=== PATIENT | male | born 1955 | race Caucasian/White ===

== ENCOUNTER 2024-02-19 15:29 | Emergency (ER) | payer OTHER, SELFPAY ==
[2024-02-19 15:32] VITALS: BP 187/98
--- NOTE | 2024-02-19 16:37 | ED.GENMED ---
History of Present Illness
General
Chief Complaint: Abnormal Lab Value
Source: patient
Exam Limitations: none
Time Seen by Provider: 02/19/24 16:04
Nursing documentation reviewed up to this point in time: agreed with
Travel History
Have you had any contact with someone who has COVID-19?: No
Do you have any symptoms of coronavirus? Fever > 100 degrees, chills, cough, shortness of breath, sore throat, loss of taste or smell, muscle aches, or headache?: No
History of Present Illness
History of Present Illness:
68-year-old male presents to the ER for evaluation of low sodium. Patient reports he had outpatient blood work done 2 days ago and was called by his family doctor stating sodium was low and to come to the ER. He is asymptomatic and has no
complaints. He is on HCTZ and lisinopril for blood pressure no prior history of abnormal sodium in the past. No complaints.
Review of Systems
Review of Systems
Allergies reviewed?: Yes
All Other Systems: ROS reviewed and negative except as documented in HPI and ROS
Constitutional: Reports no symptoms; Denies fever, fatigue or chills
Respiratory: Reports no symptoms
Cardiac: Reports no symptoms
: Reports no symptoms
Musculoskeletal: Reports no symptoms
Skin: Reports no symptoms
Neurological: Reports no symptoms
Hematologic/Lymphatic: Reports no symptoms
Psychiatric: Reports no symptoms
Phy Exam
General Physical Exam
General Presentation: no apparent distress
General age: appears stated age
General Skin: warm and dry
General Habitus: normal
General Mental: alert
General Hydration: appears well hydrated
Cardiovascular Exam
Cardiovascular Exam: regular rate/rhythm, no murmur and normal peripheral pulses
Pulmonary Exam
Pulmonary Exam: lungs clear and no respiratory distress
Neurological Exam
Neurological Exam: alert and oriented x3
Musculoskeletal Exam
Musculoskeletal Exam: full ROM
Skin Exam
Skin Exam: normal color and warm/dry
Psychiatric Exam
Psychiatric Exam: normal mood/affect
Course
Orders/Labs/Results
Orders:
Orders
02/19/24 16:36
IV Insert/Care/Rem.- Treatment PRN
UA Reflex to Culture [Urinalysis Reflex To Culture] Urgent
Date Specimen was Collected: 02/19/24
Time Specimen was Collected: 16:38
02/19/24 16:56
Complete Blood Count/With Diff Urgent
Comprehensive Metabolic Panel Urgent
Abnormal Lab Results
02/19/24
16:56
RBC 3.97 L 10^6/uL
(4.70-6.10)
Hgb 12.8 L g/dL
(13.0-18.0)
Hct 37.6 L %
(39.0-52.0)
MCV 94.7 H fL
(80.0-94.0)
MCH 32.2 H pg
(27.0-31.0)
Abs Immat Gran (auto) 0.1 H 10^3/uL
(0-0.05)
Absolute Monos (auto) 0.7 H 10^3/uL
(0.1-0.6)
Immature Gran % 0.7 H %
(0-0.5)
Monocytes % 9.6 H %
(1.7-9.3)
Eosinophils % 6.7 H %
(0-6)
Sodium 127 L mmol/L
(135-145)
Chloride 94 L mmol/L
(98-107)
Glucose 106 H mg/dl
(70-99)
02/19/24 16:56
02/19/24 16:56
Vital Signs
Initial and Last Documented VS:
Initial Vital Signs
Temp Pulse Resp BP Pulse Ox
99.0 F 93 18 187/98 99
04/25/24 15:32 02/19/24 15:32 02/19/24 15:32 02/19/24 15:32 02/19/24 15:32
Last Documented Vital Signs
Temp Pulse Resp BP Pulse Ox
99.0 F 93 18 187/98 99
02/19/24 15:32 02/19/24 15:32 02/19/24 15:32 02/19/24 15:32 02/19/24 15:32
Promotion Producer consulted with Physician
Promotion Producer consulted with physician?: Yes
Name of Physician Consulted: Mary
MDM/Problems Addressed
Differential Diagnosis Includes:
Not limited to hyponatremia
MDM/Problems Addressed:
Patient is a 68 -year-old male with history of hypertension sent by family doctor for evaluation of low sodium. Patient has no complaints is asymptomatic. Patient is on HCTZ and lisinopril for hypertension by his family doctor. His sodium level
is 127 his other chemistries are unremarkable. Again he is asymptomatic. Will have patient stop HCTZ call his family doctor tomorrow for further instructions on how to manage his blood pressure and reevaluation will DC patient home with
instructions to get sodium rechecked in the next several days to 1 week. He is to return if any worsening of symptoms.
*Pulse Oximetry
Patient hypoxic: no
*Critical Care Note
Total Time (30-74mins, 75-104mins- exclusive of procedures): Not Applicable
ED Attending Note
-
Portions of this chart may have been created with voice recognition software.� Occasional wrong word or��sound alike� substitutions may have occurred due to the inherent limitations of voice recognition software.
Discharge Plan
Departure
Patient Disposition: Home (Routine Discharge)
Date of Disposition: 02/19/24
Time of Disposition: 18:29
Patient with high blood pressure during this ER visit?: Yes
Condition: Fair
Covid-19: Not Applicable
Discharge Problem:
Acute hyponatremia
Instructions: Hyponatremia (DC), BLOOD PRESSURE
Prescriptions:
No Action
loperamide [Imodium] 2 mg Capsule
2 mg PO DAILYPRN PRN (Reason: diarrhea)
lisinopril 20 mg Tablet
20 mg PO DAILY
acetaminophen [Tylenol Extra Strength] 500 mg Tablet
1,000 mg PO DAILYPRN PRN (Reason: mild pain)
ibuprofen [Motrin IB] 200 mg Tablet
400 mg PO DAILYPRN PRN (Reason: mild pain)
hydrochlorothiazide 12.5 mg Tablet
12.5 mg PO DAILY
aspirin 81 mg Tablet,Delayed Release (Dr/Ec)
81 mg PO DAILY
Referrals:
Luis Carlos Childs PA-C [Family Provider] -
Activity Restrictions/Additional Instructions:
As discussed your sodium was low here at 127.
Stop your hydrochlorothiazide but continue your lisinopril.
Call your family doctor tomorrow for further reevaluation of continued low sodium and blood pressure management
You will need to have your sodium level rechecked in the next couple days to 1 week.
Return if any worsening of symptoms if weakness fatigue or any further concerns.
Interventions
Interventions:
*Risk Screen - Suicide Last Done: 02/19/24 15:32
*General Assessment Last Done: 02/19/24 15:32
*Neglect/Abuse Screening Last Done: 02/19/24 15:32
ED- Fall Risk Assessment Last Done: 02/19/24 17:33
*ED COVID-19 Vaccine History Last Done: 02/19/24 15:32
Discharge Date and Time
Print Language: NIUEAN
[2024-02-19 16:57] VITALS: BMI 33.2
[2024-02-19 17:10] LABS: % Basophils 1.3 % (0-2); % Eosinophils 6.7 % (0-6); % Immature Granulocytes 0.7 % (0-0.5); % Lymphocytes 21.3 % (20.5-51.1); % Monocytes 9.6 % (1.7-9.3); % Neutrophils 60.4 % (42.2-75.2); Absolute Basophils 0.1 10^3/uL (0-0.2); Absolute Eosinophils 0.5 10^3/uL (0-0.7); Absolute Immature Granulocytes 0.1 10^3/uL (0-0.05); Absolute Lymphocytes 1.5 10^3/uL (1.2-3.4); Absolute Monocytes 0.7 10^3/uL (0.1-0.6); Absolute Neutrophils 4.3 10^3/uL (1.4-6.5); Hematocrit 37.6 % (39.0-52.0); Hemoglobin 12.8 g/dL (13.0-18.0); Mean Corpuscular Hgb 32.2 pg (27.0-31.0); Mean Corpuscular Volume 94.7 fL (80.0-94.0); Mean Platelet Volume 8.6 fL (7.4-10.4); Nucleated Red Blood Cells % 0 % (-); Platelet Count 329 10^3/uL (130-400); Red Blood Cell Count 3.97 10^6/uL (4.70-6.10); Red Cell Dist. Width 11.7 % (11.5-14.5); White Blood Cell Count 7.1 10^3/uL (4.8-10.8)
[2024-02-19 17:21] LABS: ALT (SGPT) 32 U/L (0-50); AST (SGOT) 30 U/L (17-59); Albumin 4.9 g/dl (3.5-5.0); Alkaline Phosphatase 70 U/L (38-126); Blood Urea Nitrogen 17 mg/dl (9-20); Calcium 9.7 mg/dl (8.4-10.2); Carbon Dioxide 25 mmol/L (22-30); Chloride 94 mmol/L (98-107); Estimated Creatinine Clearance 89 ml/min; Glucose 106 mg/dl (70-99); Sodium 127 mmol/L (135-145); Total Bilirubin 0.4 mg/dl (0.2-1.3); Total Protein 7.4 g/dl (6.3-8.2); eGFR > 60.00
[2024-02-19 18:50] VITALS: BP 167/90
== END 2024-02-19 19:18 | disposition home or self-care (01) ==
LOC: EMR 15:29
PROVIDERS: Nurse Practitioner; EMERGENCY PHYSICIAN Emergency Medicine; FAMILY PHYSICIAN Physician Assistant Medical
DX: E87.1 Hypo-osmolality and hyponatremia (principal); I10 Essential (primary) hypertension; Z79.899 Other long term (current) drug therapy
CPT/HCPCS: 99283; 80053; 85025